=== PATIENT | female | born 1965 | race Caucasian/White ===

== ENCOUNTER 2020-07-03 23:02 | Observation (INO) | payer BC, SELFPAY ==
--- NOTE | ~2020-07-03 | CT_ITS ---
EXAMINATION: CT ABDOMEN AND PELVIS WITH CONTRAST CLINICAL INFORMATION: Intussusception post gastric bypass COMPARISON: None TECHNIQUE: Multidetector volumetric images were obtained from the superior aspect of the liver through the pubic symphysis following administration 85 mL of Omnipaque 350 intravenous contrast. Sagittal and coronal reformatted images were obtained on the technologist's workstation. Oral contrast: Yes This CT examination was performed using dose optimization techniques as appropriate, variously including the following: *Automated exposure control *Adjustment of mA and/or kV according to patient size (this includes techniques or standardized protocols for targeted exams where dose is matched to indication/reason for exam; i.e. extremities or head) *Use of iterative reconstruction technique DLP: 446 mGy-cm FINDINGS: LUNG BASES: The visualized lung bases are clear. There are bilateral breast implants. LIVER, GALLBLADDER, AND BILIARY TREE: The liver is normal in size, shape, and attenuation. No focal hepatic lesion or biliary ductal dilatation is present. The gallbladder has been removed. PANCREAS: Unremarkable. SPLEEN: Unremarkable. ADRENAL GLANDS: Unremarkable. KIDNEYS AND URETERS: The kidneys are normal in size, shape, and attenuation. No hydronephrosis, hydroureter, or calculi seen. No perinephric stranding. BLADDER: Unremarkable. GASTROINTESTINAL TRACT: There are postsurgical changes from gastric bypass. There are 2 areas of intussusception seen. There is a short segment intussusception at the anastomosis of the stomach to the small bowel efferent loop axial image 18 series 3 and coronal reconstructed image 34. There is a second small bowel intussusception in the left mid abdomen adjacent to the small bowel anastomosis axial image 34 series 3, coronal reconstructed image 38. There is no evidence of obstruction. The small and large bowel is otherwise unremarkable. The appendix is unremarkable. ABDOMINAL WALL: No significant hernia is appreciated. LYMPH NODES: There are small, small bowel mesentery lymph nodes. No enlarged lymph nodes are seen. There is no ascites. VASCULAR: Unremarkable. PELVIC VISCERA: The uterus appears to have been removed. There is a 5.2 x 4.8 cm pelvic cyst slightly to the left of midline probably representing a left ovarian cyst. OSSEOUS STRUCTURES: There is curvature of the lumbar spine to the right and degenerative change or CT/CT abdomen pelvis w con IMPRESSION: Postsurgical changes following gastric bypass. There are 2 intussusceptions seen. There is an intussusception at the stomach to small bowel anastomosis with the efferent loop and in the left mid abdomen adjacent to the small bowel anastomosis. There is no evidence of obstruction. 5 cm left pelvic cyst probably representing a left ovarian cyst.
--- NOTE | ~2020-07-03 | US_ITS ---
EXAMINATION: PELVIC ULTRASOUND CLINICAL INFORMATION: Ovarian cyst COMPARISON: Previous CT of the abdomen and pelvis from earlier the same day TECHNIQUE: Transabdominal and transvaginal pelvic ultrasound was performed. Transvaginal exam was performed for better visualization of the uterus and ovaries. FINDINGS: The uterus is been removed. The right ovary is normal-appearing and measures 2.3 x 1.1 x 1.8 cm. The left ovary is enlarged and measures 6.7 x 5.6 x 3.9 cm, volume 77 mL. There is a 5.5 x 3.5 x 4.9 cm left ovarian cyst. There is no fluid in the pelvis. US/US pelvic and transvaginal IMPRESSION: 5.5 x 3.5 x 4.9 cm simple left ovarian cyst. Normal-appearing right ovary.
[2020-07-03 23:22] VITALS: BMI 28.3
--- NOTE | 2020-07-03 23:36 | PM.HPGS ---
History of Present Illness History of Present Illness Date of Service: 07/03/20 <Gillian Angel PA-C - Last Filed: 07/03/20 23:38> 07/04/20 <Meaghan House MD - Last Filed: 07/04/20 09:21> Chief complaint: intussusception <Gillian Angel PA-C - Last Filed: 07/03/20 23:38> Narrative: Reva Rios is a 54 year old female <Gillian Angel PA-C - Last Filed: 07/03/20 23:38> This is a 54-year-old lady who underwent laparoscopic Nicole-en-Y gastric [place] [address] Briggs. Patient did well with weight loss and has been following up as scheduled. Patient reports 3 days ago developing some intermittent diarrhea that persisted and got worse yesterday. She developed left lower quadrant abdominal pain that was stabbing in nature and about an 8/10 on a pain scale. When the pain persisted and radiated to the left lower back the patient came to the emergency department at [facility]. Patient also noted episodes of nausea and vomiting yesterday followed by dry heaving. She reports emesis was bile. She underwent evaluation with laboratory values which were normal with the exception of finding for dehydration. She underwent a CT scan abdomen and pelvis that showed an area of intussusception of the small bowel just distal to the jejunojejunostomy on CT scan. There was contrast that went through the area of intussusception and there was no evidence of significant inflammation of the bowel. Patient was also noted to have a mass on the left ovary which was not further defined. Today patient reports she feels much better and she denies any abdominal pain. She reports feeling gassy. She is passing flatus without difficulty and reports that her abdominal bloating and distention has almost completely resolved. She denies nausea or vomiting this morning. Her vital signs have been within normal limits as well as her CBC and basic metabolic panel. <Meaghan House MD - Last Filed: 07/04/20 09:21> Review of Systems Review of Systems: Yes all other systems are reviewed and are negative <Meaghan House MD - Last Filed: 07/04/20 09:21> Constitutional: Constitutional: Denies chills, Denies daytime sleepiness, Denies difficulty sleeping, Denies excessive sweating, Reports fatigue, Denies fever(s), Reports headache(s), Denies night sweats, Denies snoring, Denies stops breathing during sleep and Denies weakness <Meaghan House MD - Last Filed: 07/04/20 09:21> Eyes: Eyes: Denies blurry vision, Denies other visual disturbances and Reports requires corrective lenses <Meaghan House MD - Last Filed: 07/04/20 09:21> ENT: Denies bleeding gums, Denies dysphagia, Reports dizziness, Reports headache(s), Denies hearing loss, Denies sinus pain and Denies sore throat <Meaghan House MD - Last Filed: 07/04/20 09:21> Cardiovascular: Cardiovascular: Denies chest pain, Denies chest pain at rest, Denies chest pain with activity, Denies syncope, Denies irregular heart rhythm, Denies leg edema (Right ankle status post right arthroscopy), Denies lightheadedness, Denies dyspnea, Denies dyspnea on exertion and Denies orthopnea <Meaghan House MD - Last Filed: 07/04/20 09:21> Respiratory: Respiratory: Denies chest congestion, Denies cough, Denies dyspnea, Denies dyspnea on exertion, Denies snoring and Denies wheezing <Meaghan House MD - Last Filed: 07/04/20 09:21> Gastrointestinal: Gastrointestinal: Denies abdominal pain, Denies melena, Reports bloating, Reports constipation, Denies dysphagia, Reports heartburn, Reports diarrhea, Reports nausea and Denies vomiting <Meaghan House MD - Last Filed: 07/04/20 09:21> Genitourinary: Genitourinary: Denies hematuria, Denies nocturia and Denies nipple discharge <Meaghan House MD - Last Filed: 07/04/20 09:21> Musculoskeletal: Musculoskeletal: Denies abnormal gait, Reports back pain, Denies deformity, Reports arthralgias, Reports joint swelling and Denies stiffness <Meaghan House MD - Last Filed: 07/04/20 09:21> Integumentary/Breasts: Skin/Breast: Denies breast pain, Denies breast mass and Denies nipple discharge <Meaghan House MD - Last Filed: 07/04/20 09:21> Neurologic: Denies abnormal gait, Reports dizziness, Denies syncope, Reports headache(s), Denies seizure-like activity and Denies weakness <Meaghan House MD - Last Filed: 07/04/20 09:21> Psychiatric: Psychiatric: Denies abnormal sleep pattern, Reports anxiety, Reports depression and Denies panic attacks <Meaghan House MD - Last Filed: 07/04/20 09:21> Endocrine: Endocrine: Denies excessive sweating, Reports fatigue, Denies heat intolerance, Denies polyphagia, Denies polydipsia and Denies polyuria <Meaghan House MD - Last Filed: 07/04/20 09:21> Hematologic/Lymphatic: Hematologic/Lymphatic: Denies easy bleeding and Denies easy bruising <Meaghan House MD - Last Filed: 07/04/20 09:21> Allergic/Immunologic: Allergic/Immunologic: Denies wheezing <Meaghan House MD - Last Filed: 07/04/20 09:21> [facility] Past Medical History Medical History: Medical History (Updated 07/04/20 @ 09:16 by Meaghan House MD) Bipolar depression BMI 28.0-28.9,adult Fibromyalgia Gastroesophageal reflux disease Hypothyroidism Intestinal malabsorption following gastrectomy Intussusception Ovarian mass Overweight Overweight (BMI 25.0-29.9) <Gillian Angel PA-C - Last Filed: 07/03/20 23:38> Family History Family History: Family History (Updated 07/04/20 @ 09:18 by Meaghan House MD) Mother Stroke Father Hypothyroidism HTN (hypertension) Sister Type 2 diabetes mellitus Son No problems noted. Daughter No problems noted. <Gillian Angel PA-C - Last Filed: 07/03/20 23:38> Surgical History Surgical History: Surgical History (Updated 07/04/20 @ 09:16 by Meaghan House MD) H/O lumbosacral spine surgery H/O tubal ligation H/O umbilical hernia repair H/O: hysterectomy History of bunionectomy of left great toe History of repair of hiatal hernia S/P gastric bypass S/P laparoscopic cholecystectomy S/P right knee arthroscopy <Gillian Angel PA-C - Last Filed: 07/03/20 23:38> Social History Social History: Social History (Updated 07/04/20 @ 09:18 by Meaghan House MD) Household Members: Spouse Alcohol intake: current Alcohol intake frequency: a few times a week Alcohol type: wine Smoking Status: Never smoker Second Hand Smoke Exposure: Yes (as a child parents smoked,also first was a smoker) Use of substances other than those prescribed or required for medical reasons: No Advance Directives: No <Gillian Angel PA-C - Last Filed: 07/03/20 23:38> Meds Allergies/Adverse reactions: Allergies Allergy/AdvReac Type Severity Reaction Status Date / Time No Known Allergies Allergy Verified 07/03/20 23:30 <Gillian Angel PA-C - Last Filed: 07/03/20 23:38> Active Medications: Current Medications Generic Name Dose Route Start Last Admin Trade Name Freq PRN Reason Stop Dose Admin Hydromorphone HCl 0.25 mg 07/03/20 23:27 Hydromorphone Hcl 0.5 Mg/0.5 Ml Syringe IVPUSH Q4H PRN Pain, Severe (Pain Scale 7-10) Lactated Ringer's 1,000 mls @ 125 mls/hr 07/03/20 23:30 Lr IVCONT .Q8H JAYA Ondansetron HCl 4 mg 07/03/20 23:33 Ondansetron Hcl 4 Mg/2 Ml Vial IVPUSH Q6H PRN Nausea and Vomiting <Gillian Angel PA-C - Last Filed: 07/03/20 23:38> Home medications: Home Medications Medication Instructions Recorded Confirmed Last Taken Type bupropion HCl 1 tab PO QAM 07/03/20 07/04/20 07/03/20 History 150 mg bupropion HCl 1 tab PO QAM 07/03/20 07/04/20 07/03/20 History 300 mg gabapentin 1 cap PO BEDTIME 07/03/20 07/04/20 07/02/20 History 300 mg levothyroxine 1 tab PO DAILY 07/03/20 07/04/20 07/03/20 History 75 mcg pantoprazole 1 tab PO BID 0507/04/20 07/03/20 History 40 mg aripiprazole 1 tab PO DAILY 07/04/20 07/04/20 07/03/20 History 15 mg estradiol 1 patch TRANSDERMAL QWEEK 07/04/20 07/04/20 Unknown History <Gillian Angel PA-C - Last Filed: 07/03/20 23:38> Physical Exam Vital Signs: Vital Signs: Body Mass Index 28.3 <Gillian Angel PA-C - Last Filed: 07/03/20 23:38> Const: General: cooperative, healthy appearing, comfortable, no acute distress and well developed <Meaghan House MD - Last Filed: 07/04/20 09:21> Nutritional Appearance: obese <Meaghan House MD - Last Filed: 07/04/20 09:21> Orientation/consciousness: patient oriented x3 <Meaghan House MD - Last Filed: 07/04/20 09:21> Limitations: no limitations <Meaghan House MD - Last Filed: 07/04/20 09:21> HENMT: Head: Yes normal to inspection, Yes normocephalic and Yes atraumatic <Meaghan House MD - Last Filed: 07/04/20 09:21> Mouth: oropharynx normal and moist mucous membranes <Meaghan House MD - Last Filed: 07/04/20 09:21> Eyes: General: appearance normal, both eyes and all related structures <Meaghan House MD - Last Filed: 07/04/20 09:21> Sclerae: sclerae normal <Meaghan House MD - Last Filed: 07/04/20 09:21> EOM: EOMs intact bilaterally <MD Kelley Parsons Last Filed: 07/04/20 09:21> Neck: Neck: Yes normal visual inspection, Yes full ROM and Yes no lymphadenopathy <MD Kelley Parsons Last Filed: 07/04/20 09:21> Thyroid: Thyroid normal <MD Kelley Parsons Last Filed: 07/04/20 09:21> Chest: Chest palpation & inspection: normal inspection of the chest <Meaghan House MD - Last Filed: 07/04/20 09:21> Resp: Effort & Inspection: normal respiratory effort and able to speak in complete sentences <Meaghan House MD - Last Filed: 07/04/20 09:21> Auscultation: clear to auscultation bilaterally, no crackles, no rales, no rhonchi and no wheezes <Meaghan House MD - Last Filed: 07/04/20 09:21> Cardio: Rate: regular rate <Meaghan House MD - Last Filed: 07/04/20 09:21> Heart sounds: S1 normal heart sound present and S2 normal heart sound present <Meaghan House MD - Last Filed: 07/04/20 09:21> GI: Inspection: Yes obesity <Meaghan House MD - Last Filed: 07/04/20 09:21> Palpation (GI): Soft to palpation, nontender, no guarding and no hernias <Meaghan House MD - Last Filed: 07/04/20 09:21> Rectal Exam - Female: deferred <Meaghan House MD - Last Filed: 07/04/20 09:21> Skin: General skin exam: no rashes or lesions noted and no jaundice <Meaghan House MD - Last Filed: 07/04/20 09:21> Wounds: no wounds <Meaghan House MD - Last Filed: 07/04/20 09:21> Hair: normal <Meaghan House MD - Last Filed: 07/04/20 09:21> Nails: normal <Meaghan House MD - Last Filed: 07/04/20 09:21> Neuro: General: patient oriented x3 <Meaghan House MD - Last Filed: 07/04/20 09:21> Cranial nerves: Yes CN's II-XII intact bilaterally <Meaghan House MD - Last Filed: 07/04/20 09:21> Cognition (Neuro): normal cognition <Meaghan House MD - Last Filed: 07/04/20 09:21> Gait exam (Neuro): Normal gait present <Meaghan House MD - Last Filed: 07/04/20 09:21> Extrem: General: Yes normal to inspection, Yes full ROM, Yes no clubbing, cyanosis or edema and Yes no calf tenderness <Meaghan House MD - Last Filed: 07/04/20 09:21> Psych: Appearance: grossly normal <Meaghan House MD - Last Filed: 07/04/20 09:21> Mental Status: mental status grossly normal <Meaghan House MD - Last Filed: 07/04/20 09:21> Speech and movement: Normal speech and movement present <Meaghan House MD - Last Filed: 07/04/20 09:21> Affect: normal affect <Meaghan House MD - Last Filed: 07/04/20 09:21> Attitude: cooperative <Meaghan House MD - Last Filed: 07/04/20 09:21> Thought process: Normal thought process present <Meaghan House MD - Last Filed: 07/04/20 09:21> Thought content: Normal thought content present <Meaghan House MD - Last Filed: 07/04/20 09:21> Insight: Good insight present (Psych) <Meaghan House MD - Last Filed: 07/04/20 09:21> Judgement: Good judgement present (Psych) <Meaghan House MD - Last Filed: 07/04/20 09:21> Assessment and Plan (1) Intussusception: Status: Acute <Gillian Angel PA-C - Last Filed: 07/03/20 23:38> (2) Ovarian mass: Status: Acute <Gillian Angel PA-C - Last Filed: 07/03/20 23:38> This is a 54-year-old lady with a history of a Nicole-en-Y gastric bypass in 2013 who presented to the emergency department at an outside facility yesterday with abdominal pain nausea vomiting diarrhea and a CT scan showing an intussusception of the small bowel near the jejunojejunostomy without complete obstruction. Patient was transferred to [facility] kept NPO placed on IV fluids and her pain has now resolved including nausea vomiting and diarrhea. Patient also was noted on outside CT scan to have a left ovarian mass. We will repeat the CT scan to evaluate for persistent intussusception and to evaluate the left ovarian mass. We will obtain a gynecological consult given this left ovarian mass. If there is no evidence and intussusception on repeat CT scan the patient will be started on a liquid diet. I will resume the patient's home medications at this point. I spent 45 minutes of time with this patient which also includes documenting. <Meaghan House MD - Last Filed: 07/04/20 09:21> Procedures Date of Service Date of Service: 07/04/20 <Meaghan House MD - Last Filed: 07/04/20 09:21>
--- NOTE | 2020-07-03 23:38 | P.DS_ITS ---
DS: Providers Provider Date of Service: 07/05/20 Date of admission: 07/03/20 23:02 Primary care physician: Abraham Aguilar MD Consults: 07/03/20 23:27 Consult to Obstetrics / Gynecology Routine Consulting Provider: Ciro Mesa Reason for consultation: ovarian mass seen incicentally on CT at [facility], transfered/direct admit Has provider been notified: No DS: Summary Time Spent with Patient Time attestation: Total time spent providing and/or coordinating discharge ser vices: Discharge coordination time: Greater than 30 minutes Quality: Stroke Does the patient have a stroke diagnosis?: No Physical Exam Vital Signs: Vital Signs: Body Mass Index 28.3 Discharge Plan Discharge Patient Disposition: Home, Self-Care Discharge Diagnosis: intussusception s/p gastric bypass, resolved Referrals: Abraham Aguilar MD [Primary Care Provider] - 1 Week Discharge Medications: Continued levothyroxine 75 mcg tablet 1 tab PO DAILY RF: 0 pantoprazole 40 mg tablet,delayed release (DR/EC) 1 tab PO BID RF: 0 gabapentin 300 mg capsule 1 cap PO BEDTIME RF: 0 bupropion HCl 300 mg tablet extended release 24 hr 1 tab PO QAM RF: 0 bupropion HCl 150 mg tablet extended release 24 hr 1 tab PO QAM RF: 0 aripiprazole 15 mg tablet 1 tab PO DAILY RF: 0 estradiol 0.05 mg/24 hr patch weekly 1 patch transdermal QWEEK RF: 0 Discharge Orders: Discharge Order (Routine); Ordered 07/05/20 Ordered By: Conor Briggs Diet: other Activity on Discharge: As tolerated Stand Alone Forms: Patient Portal Discharge page Activity Restrictions/Additional Instructions: Continue phase 3 protein shakes for the rest of the week as directed by Dr. Briggs. Continue to use incentive spirometer hourly while awake. Walk in home for 5- 10 minutes every 2 hours during the first week. Continue phase 1 diet today and start phase 2 diet tomorrow morning. Follow all instructions in the bariatric handbook. Call with any questions. Discharge Summary: Admitting Diagnosis: intussusception Discharge Diagnosis: same, clinically improved Date of Discharge: 07/05/20 Hospital course: Patient went to [facility] ED evening of 07/03/20 with left lower abdominal pain. CT scan showed intussusception. Decision was made with team to transfer her to [facility]. Was kept NPO and given IVF and pain control overnight, and repeat CT exam next morning showed two points of intussusception but no small bowel obstruction. Patient was passing flatus and bowel movements. Was started on protein shakes the morning of 07/05/20 and tolerated well. Discharged home. All instructions given in writing. Care Plan Goals: improvement of intussusception Health Concerns: small bowel intussusception Plan of Treatment: conservative treatment and diet advancement Assessment: HD#2 stable, tolerating phase 3, discharged home Discharge Date/Time: 07/05/20 15:05
[2020-07-03 23:50] VITALS: BP 109/57; PULSE 69; RESP 18; TEMP 36.8; O2SAT 95
[2020-07-04] VITALS (7 sets, daily range): BP systolic 102–115; BP diastolic 56–64; PULSE 54–77; RESP 15–20; TEMP 36.7–37; O2SAT 94–96
[2020-07-04] MEDS: HYDROmorphone HCl 0.5 MG/0.5 ML SYRINGE 0.25 MG IVPUSH (00:49)
[2020-07-04] MEDS: Lactated Ringers 1,000 ML 125 ML IVCONT ×3 (00:50→17:15)
[2020-07-04 06:32] LABS: MANUAL DIFF FLAG NO
[2020-07-04 06:48] LABS: Basophils Percent Auto 0.7 % (0-2); Eosinophils Absolute Auto 0.1 X10*3/uL (0.0-0.4); Eosinophils Percent Auto 2.3 % (0-4); Hematocrit 36.5 % (37-47); Imm Gran Abs Auto 0.01 X10*3/uL (0.00-0.03); Imm Gran Pct Auto 0.2 % (0.0-0.4); Lymphocytes Absolute Auto 1.7 X10*3/uL (1.2-4.9); Lymphocytes Percent Auto 39.1 % (20-40); Mean Corpuscular HGB Conc 32.9 g/dl (31.0-35.0); Mean Corpuscular Hemoglobin 30.2 pg (27.0-33.0); Mean Corpuscular Volume 91.7 fL (80-98); Mean Platelet Volume 8.9 fL (9.4-12.3); Monocytes Absolute Auto 0.4 X10*3/uL (0.1-1.2); Neutrophils Absolute Auto 2.1 X10*3/uL (2.0-8.3); Neutrophils Percent Auto 48.7 % (45-73); Platelet Count 332 X10*3/uL (160-400); Red Blood Count 3.98 X10*6/uL (4.20-5.50); Red Cell Distribution Width 17.3 % (11.0-16.0); White Blood Count 4.3 X10*3/uL (4.8-10.8)
[2020-07-04 07:22] LABS: Anion Gap 14 (12-20); Blood Urea Nitrogen 10 mg/dL (9-16); Calcium 8.6 mg/dL (8.4-10.2); Carbon Dioxide 26 mmol/L (22-29); Chloride 104 mmol/L (96-108); Creatinine Clr Calc Pharmacy 90.5; Estimated Glomerular Filt Rate > 60; Glucose Random 82 mg/dL (60-115); Potassium 4.5 mmol/L (3.3-5.1); Sodium 139 mmol/L (135-145)
[2020-07-04] MEDS: Omeprazole 40 MG CAPSULE.DR PO (10:14)
[2020-07-04] MEDS: ARIPiprazole 15 MG TABLET PO (10:14)
[2020-07-04] MEDS: Levothyroxine Sodium 75 MCG TABLET PO (10:14)
[2020-07-04] MEDS: buPROPion HCl XL 150 MG TAB.ER.24H 450 MG PO (10:14)
[2020-07-04] MEDS: iohexoL 350 MG/ML 100 ML INFUS..BTL IV (12:00)
--- NOTE | 2020-07-04 13:29 | MHC.CM.PN ---
MET WITH PT WHO IS INDEPENDENT ,SHE IS A SW CM INTERVENTION IS NOT INDICATED PT HAS OWN TRANSAPORT HOME
--- NOTE | 2020-07-04 15:45 | PM.GYNCN ---
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 Briggs. 3 days ago the patient started developing intermittent diarrhea that persisted and got worse. She developed left lower quadrant abdominal pain that was stabbing in nature, so she presented to the emergency department at [facility]. The workup included a CT scan abdomen and pelvis that showed an area of intussusception of the small bowel and a the left ovary cyst measuring 5.3 cm which was not further defined. Ultrasound was done showed a pelvic cyst measuring the same amount but there was no characterization of the type of cyst simple versus complex. Today patient reports she feels much better and she denies any abdominal pain. She is passing flatus without difficulty and reports that her abdominal bloating and distention has almost completely resolved. She denies nausea or vomiting this morning. She complains of back pain every now and then. No vaginal bleeding or discharge cc:: CC: Meaghan House MD SENIOR IT AUDITOR - Review of Systems Review of Systems ROS Unobtainable: All systems reviewed & are unremarkable except as noted in HPI and below Cardiovascular: Denies Palpatations, Loss of consciousness and Chest pain Respiratory: Denies Cough, Wheezing and Shortness of breath Musculoskeletal: Denies Low back pain Gastrointestinal: Denies Heartburn, Constipation, Diarrhea, Nausea and Vomiting Genitourinary: Denies Pain with urination, Burning with urination and Urinary frequency Neurological: Denies Migranes Psychological: Denies Depression OB [facility] Past Medical History Medical History (Updated 07/04/20 @ 16:00 by Ciro Mesa MD) Bipolar depression BMI 28.0-28.9,adult Fibromyalgia Gastroesophageal reflux disease Hypothyroidism Intestinal malabsorption following gastrectomy Intussusception Ovarian mass Overweight Overweight (BMI 25.0-29.9) Family History Family History (Updated 07/04/20 @ 09:18 by Meaghan House MD) Mother Stroke Father Hypothyroidism HTN (hypertension) Sister Type 2 diabetes mellitus Son No problems noted. Daughter No problems noted. Surgical History Surgical History (Updated 07/04/20 @ 09:16 by Meaghan House MD) H/O lumbosacral spine surgery H/O tubal ligation H/O umbilical hernia repair H/O: hysterectomy History of bunionectomy of left great toe History of repair of hiatal hernia S/P gastric bypass S/P laparoscopic cholecystectomy S/P right knee arthroscopy Social History Social History (Updated 07/04/20 @ 09:18 by Meaghan House MD) Household Members: Spouse Alcohol intake: current Alcohol intake frequency: a few times a week Alcohol type: wine Smoking Status: Never smoker Second Hand Smoke Exposure: Yes (as a child parents smoked,also first was a smoker) Use of substances other than those prescribed or required for medical reasons: No Advance Directives: No service: No Meds Allergies Allergy/AdvReac Type Severity Reaction Status Date / Time No Known Allergies Allergy Verified 07/03/20 23:30 Active Medications: Current Medications Generic Name Dose Route Start Last Admin Trade Name Freq PRN Reason Stop Dose Admin Aripiprazole 15 mg 07/04/20 09:25 07/04/20 10:14 Aripiprazole 15 Mg Tablet PO 15 mg DAILY JAYA Administration Bupropion HCl 450 mg 07/04/20 09:25 07/04/20 10:14 Bupropion Hcl Xl 150 Mg Tab.Er.24h PO 450 mg DAILY JAYA Administration Hydromorphone HCl 0.25 mg 07/03/20 23:27 07/04/20 00:49 Hydromorphone Hcl 0.5 Mg/0.5 Ml Syringe IVPUSH 0.25 mg Q4H PRN Administration Pain, Severe (Pain Scale 7-10) Lactated Ringer's 1,000 mls @ 125 mls/hr 07/03/20 23:30 07/04/20 09:14 Lr IVCONT 125 mls/hr .Q8H JAYA Administration Levothyroxine Sodium 75 mcg 07/04/20 09:25 07/04/20 10:14 Levothyroxine Sodium 75 Mcg Tablet PO 75 mcg DAILY@0600 JAYA Administration Omeprazole 40 mg 07/04/20 09:25 07/04/20 10:14 Omeprazole 40 Mg Capsule.Dr PO 40 mg DAILY@0630 JAYA Administration Ondansetron HCl 4 mg 07/03/20 23:33 Ondansetron Hcl 4 Mg/2 Ml Vial IVPUSH Q8H PRN Nausea and Vomiting Home Medications Medication Instructions Recorded Confirmed Last Taken Type bupropion HCl 1 tab PO QAM 07/03/20 07/04/20 07/03/20 History 150 mg bupropion HCl 1 tab PO QAM 07/03/20 07/04/20 07/03/20 History 300 mg gabapentin 1 cap PO BEDTIME 07/03/20 07/04/20 07/02/20 History 300 mg levothyroxine 1 tab PO DAILY 07/03/20 07/04/20 07/03/20 History 75 mcg pantoprazole 1 tab PO BID 07/03/20 07/04/20 07/03/20 History 40 mg aripiprazole 1 tab PO DAILY 07/04/20 07/04/20 07/03/20 History 15 mg estradiol 1 patch TRANSDERMAL QWEEK 07/04/20 07/04/20 Unknown History [employer]TER Physical Exam Vitals Vital signs: Temp Pulse Resp BP Pulse Ox 98.6 F 67 18 112/58 L 95 07/04/20 15:16 07/04/20 15:16 07/04/20 15:16 07/04/20 15:16 07/04/20 15:16 Body Mass Index 28.3 Constitutional General Appearance: Healthy appearing, Well-nourished and Well-developed Psychiatric Mood and Affect: active and alert, normal mood and normal affect Skin Appearance: No rashes and No lesions Lungs Respiratory Effort: No intercostal retractions Auscultation: Clear to auscultation Cardiovascular Auscultation: RRR Abdomen Auscultation/Inspection/Palpation: Normal bowel sounds, Soft, Non-distended and No tenderness Female Genitalia (Pelvic) Exam: Deferred [employer]ER [employer]TER - Results Labs CBC & Chem 7: 07/04/20 05:37 07/04/20 05:37 Labs: Short CBC 07/04/20 Range/Units 05:37 WBC 4.3 L (4.8-10.8) X10*3/uL Hgb 12.0 (12.0-16.0) g/dl Hct 36.5 L (37-47) % Plt Count 332 (160-400) X10*3/uL BMP 07/04/20 05:37 Sodium 139 Potassium 4.5 Chloride 104 Carbon Dioxide 26 BUN 10 Creatinine 0.72 Calcium 8.6 Assessment and Plan (1) Simple ovarian cyst: Status: Acute Since the ultrasound done at [place] stated did not not characterized the ovarian cyst as simple versus complex , the pelvic ultrasound was repeated. It showed a 5.5 x4.9 x 3.5 cm simple left ovarian cyst. Discussed with the patient the findings on the ultrasound, left simple ovarian cyst, it associated low risk of malignancy; will follow-up in 3 months in the office with a repeat ultrasound. Signs and symptoms of ovarian cyst rupture and/or torsion were discussed with the patient, she is to call or go to emergency room in case of acute severe abdominal pain with or without nausea and vomiting. All questions answered, the patient verbalized understanding.
--- NOTE | 2020-07-04 18:19 | PC.NURSE ---
pt stated she had 3 loose bm's today since 5 pm. pt stated that stool is black. Pt educated to save the next BM for RN for assessment
--- NOTE | 2020-07-04 20:17 | PM.PNGS ---
Subjective Subjective Date of Service: 07/05/20 Interval history: Patient feels much better. Reports no significant abdominal pain CT abdomen/pelvis was reviewed. It is read as there are two areas of intussusception. However there is no obstruction, and I cannot appreciate them as well. A pelvic U/S was also performed that shows a 5.5cm simple ovarian cyst Physical Exam Vital Signs: Vital Signs: Last Vital Signs Temp 98.5 F 07/04/20 19:35 Pulse 69 07/04/20 19:35 Resp 20 07/04/20 19:35 BP 111/61 07/04/20 19:35 Pulse Ox 95 07/04/20 19:35 Body Mass Index 28.3 GI: Inspection: Yes normal to inspection Palpation (GI): Soft to palpation and Tenderness to palpation present (GI) (very mild periumbilical tenderness. No rebound tenderness or guarding) Progress Note: A&P Assessment and plan (1) Overweight (BMI 25.0-29.9): Status: Acute (2) S/P gastric bypass: Status: Acute (3) BMI 28.0-28.9,adult: Status: Acute (4) Intestinal malabsorption following gastrectomy: Status: Acute (5) Ovarian mass: Status: Acute (6) Intussusception: Status: Acute Assessment and Plan: Will try phase 3 bariatric diet. (7) Simple ovarian cyst: Status: Acute Fall Risk Details Current Medications: Current Medications Generic Name Dose Route Start Last Admin Trade Name Freq PRN Reason Stop Dose Admin Aripiprazole 15 mg 07/04/20 09:25 07/04/20 10:14 Aripiprazole 15 Mg Tablet PO 15 mg DAILY JAYA Administration Bupropion HCl 450 mg 07/04/20 09:25 07/04/20 10:14 Bupropion Hcl Xl 150 Mg Tab.Er.24h PO 450 mg DAILY JAYA Administration Gabapentin 300 mg 07/04/20 21:00 Gabapentin 300 Mg Capsule PO BEDTIME JAYA Hydromorphone HCl 0.25 mg 07/03/20 23:27 07/04/20 00:49 Hydromorphone Hcl 0.5 Mg/0.5 Ml Syringe IVPUSH 0.25 mg Q4H PRN Administration Pain, Severe (Pain Scale 7-10) Lactated Ringer's 1,000 mls @ 125 mls/hr 07/03/20 23:30 07/04/20 17:15 Lr IVCONT 125 mls/hr .Q8H JAYA Administration Levothyroxine Sodium 75 mcg 07/04/20 09:25 07/04/20 10:14 Levothyroxine Sodium 75 Mcg Tablet PO 75 mcg DAILY@0600 JAYA Administration Omeprazole 40 mg 07/04/20 09:25 07/04/20 10:14 Omeprazole 40 Mg Capsule.Dr PO 40 mg DAILY@0630 JAYA Administration Ondansetron HCl 4 mg 07/03/20 23:33 Ondansetron Hcl 4 Mg/2 Ml Vial IVPUSH Q8H PRN Nausea and Vomiting Time Spent With Patient Time: Total time spent is greater than 50% in coordination of care (as documented) at patient's floor/unit and/or counseling patient: Time with patient: Greater than 35 minutes Procedures Date of Service Date of Service: 07/05/20
[2020-07-04] MEDS: Gabapentin 300 MG CAPSULE PO (20:55)
--- NOTE | 2020-07-04 21:04 | PM.PNGS ---
Subjective Subjective Date of Service: 07/05/20 Physical Exam Vital Signs: Vital Signs: Last Vital Signs Temp 98.5 F 07/04/20 19:35 Pulse 69 07/04/20 19:35 Resp 20 07/04/20 19:35 BP 111/61 07/04/20 19:35 Pulse Ox 95 07/04/20 19:35 Body Mass Index 28.3 Progress Note: A&P Assessment and plan (1) Intussusception: Status: Acute (2) Intestinal malabsorption following gastrectomy: Status: Acute (3) S/P gastric bypass: Status: Acute (4) Overweight (BMI 25.0-29.9): Status: Acute (5) BMI 28.0-28.9,adult: Status: Acute Fall Risk Details Current Medications: Current Medications Generic Name Dose Route Start Last Admin Trade Name Freq PRN Reason Stop Dose Admin Aripiprazole 15 mg 07/04/20 09:25 07/04/20 10:14 Aripiprazole 15 Mg Tablet PO 15 mg DAILY JAYA Administration Bupropion HCl 450 mg 07/04/20 09:25 07/04/20 10:14 Bupropion Hcl Xl 150 Mg Tab.Er.24h PO 450 mg DAILY JAYA Administration Gabapentin 300 mg 07/04/20 21:00 07/04/20 20:55 Gabapentin 300 Mg Capsule PO 300 mg BEDTIME JAYA Administration Hydromorphone HCl 0.25 mg 07/03/20 23:27 07/04/20 00:49 Hydromorphone Hcl 0.5 Mg/0.5 Ml Syringe IVPUSH 0.25 mg Q4H PRN Administration Pain, Severe (Pain Scale 7-10) Lactated Ringer's 1,000 mls @ 125 mls/hr 07/03/20 23:30 07/04/20 17:15 Lr IVCONT 125 mls/hr .Q8H JAYA Administration Acetaminophen 1,000 mg in 100 mls @ 400 mls/hr 07/05/20 00:00 Ofirmev IV 07/05/20 18:14 Q6H JAYA Levothyroxine Sodium 75 mcg 07/04/20 09:25 07/04/20 10:14 Levothyroxine Sodium 75 Mcg Tablet PO 75 mcg DAILY@0600 JAYA Administration Omeprazole 40 mg 07/04/20 09:25 07/04/20 10:14 Omeprazole 40 Mg Capsule.Dr PO 40 mg DAILY@0630 JAYA Administration Ondansetron HCl 4 mg 07/03/20 23:33 Ondansetron Hcl 4 Mg/2 Ml Vial IVPUSH Q8H PRN Nausea and Vomiting Time Spent With Patient Time: Total time spent is greater than 50% in coordination of care (as documented) at patient's floor/unit and/or counseling patient:
[2020-07-05] MEDS: Lactated Ringers 1,000 ML 125 ML IVCONT ×2 (02:27→11:03)
[2020-07-05 04:00] VITALS: BP 114/65; PULSE 75; RESP 18; TEMP 36.8; O2SAT 96
[2020-07-05] MEDS: Omeprazole 40 MG CAPSULE.DR PO (05:38)
[2020-07-05] MEDS: Levothyroxine Sodium 75 MCG TABLET PO (05:38)
[2020-07-05 06:13] LABS: MANUAL DIFF FLAG NO
[2020-07-05 06:31] LABS: Basophils Percent Auto 0.9 % (0-2); Eosinophils Absolute Auto 0.1 X10*3/uL (0.0-0.4); Eosinophils Percent Auto 2.6 % (0-4); Hematocrit 37.5 % (37-47); Hemoglobin 12.3 g/dl (12.0-16.0); Imm Gran Abs Auto 0.01 X10*3/uL (0.00-0.03); Imm Gran Pct Auto 0.3 % (0.0-0.4); Lymphocytes Absolute Auto 1.3 X10*3/uL (1.2-4.9); Lymphocytes Percent Auto 36.7 % (20-40); Mean Corpuscular HGB Conc 32.8 g/dl (31.0-35.0); Mean Corpuscular Volume 91.5 fL (80-98); Mean Platelet Volume 8.7 fL (9.4-12.3); Monocytes Absolute Auto 0.3 X10*3/uL (0.1-1.2); Monocytes Percent Auto 8.7 % (2-11); Neutrophils Absolute Auto 1.7 X10*3/uL (2.0-8.3); Neutrophils Percent Auto 50.8 % (45-73); Platelet Count 331 X10*3/uL (160-400); Red Cell Distribution Width 16.8 % (11.0-16.0); White Blood Count 3.4 X10*3/uL (4.8-10.8)
[2020-07-05 06:47] LABS: Anion Gap 16 (12-20); Blood Urea Nitrogen 8 mg/dL (9-16); Calcium 8.4 mg/dL (8.4-10.2); Carbon Dioxide 24 mmol/L (22-29); Chloride 104 mmol/L (96-108); Creatinine Clr Calc Pharmacy 95.9; Estimated Glomerular Filt Rate > 60; Glucose Random 78 mg/dL (60-115); Sodium 140 mmol/L (135-145)
[2020-07-05 07:28] VITALS: BP 109/64; PULSE 70; RESP 16; TEMP 36.7; O2SAT 95
[2020-07-05] MEDS: ARIPiprazole 15 MG TABLET PO (08:31)
[2020-07-05] MEDS: buPROPion HCl XL 150 MG TAB.ER.24H 450 MG PO (08:31)
[2020-07-05 11:05] VITALS: BP 113/53; PULSE 73; RESP 16; TEMP 36.9; O2SAT 95
--- NOTE | 2020-07-05 12:47 | MHC.CM.PN ---
pt rosangela sim skilled services ordered by
== END 2020-07-05 15:05 | disposition home or self-care (01) ==
PROVIDERS: Physician Assistant; Admitting Provider Surgery; PCP Internal Medicine; Visit Provider Surgery
DX: N83.292 Other ovarian cyst, left side (principal); R19.7 Diarrhea, unspecified; R10.32 Left lower quadrant pain; K56.1 Intussusception; K91.2 Postsurgical malabsorption, not elsewhere classified; E66.3 Overweight; E03.9 Hypothyroidism, unspecified; Z68.28 Body mass index [BMI] 28.0-28.9, adult; Z98.84 Bariatric surgery status; Z90.3 Acquired absence of stomach [part of]; Z90.49 Acquired absence of other specified parts of digestive tract; Z90.710 Acquired absence of both cervix and uterus; Z79.899 Other long term (current) drug therapy
CPT/HCPCS: 36415; 74177; 76830; 76856; 80048; 85025; 96361; 96374; 96375; 96376; 99219; 99285; J0131; J1170; Q9967

== ENCOUNTER → 2020-07-14 08:20 | Outpatient (BNVA) | payer BC, SELFPAY | PROVIDERS: PCP Internal Medicine; Visit Provider Dietitian, Registered | DX: E66.3 Overweight (principal); Z68.27 Body mass index [BMI] 27.0-27.9, adult | CPT/HCPCS: 97802 ==

== ENCOUNTER 2020-07-25 15:30 | Emergency (ER) | payer BC, SELFPAY ==
[2020-07-25 15:57] VITALS: BP 122/75; PULSE 88; RESP 18; TEMP 37; O2SAT 98; BMI 28.0
== END 2020-07-25 19:17 | disposition left against medical advice (07) ==
PROVIDERS: Emergency Provider Emergency Medicine; PCP Internal Medicine
DX: R10.9 Unspecified abdominal pain (principal)
CPT/HCPCS: 99281; 99282

== ENCOUNTER → 2020-08-09 07:54 | Outpatient (BNVA) | payer BC, SELFPAY | PROVIDERS: PCP Internal Medicine; Visit Provider Obstetrics & Gynecology ==

== ENCOUNTER 2020-08-23 13:11 | Outpatient (REF) | payer BC, SELFPAY ==
--- NOTE | ~2020-08-23 | MM_ITS ---
EXAMINATION: MM DIAGNOSTIC DIGITAL BREAST TOMOSYNTHESIS, BILATERAL US DIAGNOSTIC ULTRASOUND BREAST, LEFT CLINICAL INFORMATION: Palpable nodularity left breast 12:00 and 6:00 position. History probable benign small nodularity left breast on outside ultrasound (prior ultrasound exam 1 year follow-up). No known family history breast cancer. The lifetime risk of breast cancer based on the Tyrer-Cuzick Model is 9%. COMPARISON: Outside mammography: 09/30/2019, 02/28/2018 and outside left breast ultrasound 09/18/2019 and 11/18/2016 ([facility]). TECHNIQUE: Digital mammography is performed in craniocaudal and mediolateral oblique views. Digital breast tomosynthesis is performed in implant-displaced craniocaudal and implant-displaced mediolateral oblique views. Synthesized 2D images are generated from the tomosynthesis. Computer-aided detection (CAD) is performed for this exam. Ultrasound left breast is targeted 10:00 through 2:00 positions, and 4:00 through 8:00 positions. Patient is able to point to areas of concern at time of imaging. Grayscale imaging and color Doppler are performed without and with harmonics. FINDINGS: The breasts are heterogeneously dense, which may obscure small masses (ACR BI-RADS breast composition Category c). There are bilateral implants. The implant contours are smooth and similar to prior studies. Breast parenchymal pattern is similar to prior exams. There is no interval dominant mass or architectural abnormality. There are scattered benign round calcifications again seen in each breast. Ultrasound left breast demonstrates no interval new dominant cystic or solid mass or architectural abnormality. Again, there is scattered nodularity similar to prior ultrasound without increasing size or change in contour. Prior outside ultrasound notes nodularity stable from prior exam and stability today's study represents two-year stability and benign findings. The nodularity includes horizontal elongated hypoechoic nodule anterior 1:00 position measuring 0.2 x 1.1 cm and 0.7 cm nodule more superficially at anterior 1:00. There is a small cyst 6:00 position 1 cm from nipple measuring under 5 mm. There is a scattered micronodularity as before. No skin thickening or edema tracking in soft tissue planes. No abnormal color flow. Results are discussed with the patient at time of visit. MM/MM tomosynthesis diag imp BI IMPRESSION: 1. No mammographic evidence of malignancy or significant change from outside exams. 2. Scattered small nodularity left breast stable from prior outside ultrasound and considered benign. No interval new dominant nodularity. ASSESSMENT: BI-RADS 2: Benign RECOMMENDATION: 1. Patient should be managed based on the clinical impression. If there remains a palpable finding of concern, then further evaluation may be considered with surgical consult. Decision to proceed with biopsy should be based on clinical grounds and degree of clinical concern. 2. Otherwise, routine annual screening mammography. This patient's information was entered into a reminder system with a target due date for their next mammogram.
== END 2020-08-23 13:12 | disposition home or self-care (01) ==
LOC: HO.MAMMO 13:11
PROVIDERS: Visit Provider Obstetrics & Gynecology
DX: N63.25 Unspecified lump in the left breast, overlapping quadrants (principal)
CPT/HCPCS: 76642; 77062; 77066

== ENCOUNTER 2020-09-25 10:59 | Outpatient (REF) | payer BC, SELFPAY ==
--- NOTE | ~2020-09-25 | US_ITS ---
EXAMINATION: US PELVIS AND TRANSVAGINAL CLINICAL INFORMATION: Ovarian cyst. COMPARISON: Pelvic ultrasound dated 07/04/2020. TECHNIQUE: Ultrasound of the pelvis is performed using both transabdominal and transvaginal transducers along with Doppler. Transvaginal imaging is performed due to inadequate visualization transabdominally. FINDINGS: Uterus: Status post hysterectomy. No new pelvic mass or fluid collection. Adnexa: Both ovaries are visualized. There is normal color flow to the adnexa. There is no ovarian torsion. There is no pelvic ascites or fluid collection. Right ovary measures 2 x 1.5 x 1.3 cm. Right ovarian volume of 2 mL. Left ovary measures 1.9 x 1.1 x 1.4 cm. Left ovarian volume of 1.5 mL. Previously seen left ovarian cyst no longer identified. US/US pelvic and transvaginal IMPRESSION: Resolution of the previously seen left ovarian cyst. Otherwise unremarkable examination.
== END 2020-09-25 11:00 | disposition home or self-care (01) ==
LOC: HO.US 10:59
PROVIDERS: Visit Provider Obstetrics & Gynecology
DX: N83.299 Other ovarian cyst, unspecified side (principal)
CPT/HCPCS: 76830; 76856

== ENCOUNTER → 2020-10-02 10:19 | Outpatient (BNVA) | payer BC, SELFPAY | PROVIDERS: PCP Internal Medicine; Visit Provider Obstetrics & Gynecology ==

== ENCOUNTER 2021-12-03 08:31 | Outpatient (REF) | payer BC, SELFPAY ==
--- NOTE | ~2021-12-03 | MM_ITS ---
EXAMINATION: MM SCREENING DIGITAL BREAST TOMOSYNTHESIS, BILATERAL CLINICAL INFORMATION: Screening. Asymptomatic. Bilateral breast implants. The lifetime risk of breast cancer based on the Tyrer-Cuzick Model is 12.2%. COMPARISON: Mammography: August 23, 2020 and studies dating back to February 28, 2018 TECHNIQUE: Digital mammography is performed in craniocaudal and mediolateral oblique views along with computer-aided detection (CAD). Digital breast tomosynthesis is performed in implant-displaced craniocaudal and implant-displaced mediolateral oblique views along with computer-aided detection (CAD). Synthesized 2D images are generated from the tomosynthesis. FINDINGS: There are scattered areas of fibroglandular density (ACR BI-RADS breast composition Category b). There are no significant masses, abnormal calcifications, or other abnormalities. Breast implants appear intact bilaterally. MM/MM tomosynthesis screen imp BI IMPRESSION: There are no significant changes from prior study. ASSESSMENT: BI-RADS 1: Negative RECOMMENDATION: Routine annual mammography screening. This patient's information was entered into a reminder system with a target due date for their next mammogram.
== END 2021-12-03 08:32 | disposition home or self-care (01) ==
LOC: HO.MAMMO 08:31
PROVIDERS: PCP Internal Medicine; Visit Provider Internal Medicine
DX: Z12.31 Encounter for screening mammogram for malignant neoplasm of breast (principal)
CPT/HCPCS: 77063; 77067